=== PATIENT | male | born 1965 | race Caucasian/White ===

== ENCOUNTER 2021-09-22 11:41 | Inpatient (IN) | payer MEDICARE, MEDICAID ==
[~2021-09-22] VITALS: Ht 180.3 cm; Wt 119.0 kg
[2021-09-22 12:16] LABS: HEMATOCRIT 39.2 % (42.0-52.0); MEAN CELL VOLUME 88 fl (80.0-100.0); MEAN CORPUSCULAR HEMOGLOBIN 32 pg (27-31); MEAN CORPUSCULAR HGB CONC 36 g/dl (33.0-37.0); PLATELET COUNT 192 K/mm3 (130-400); RED BLOOD COUNT 4.45 M/mm3 (4.20-5.60); REDCELL DISTRIBUTION WIDTH-CV 13.1 % (11.5-14.5)
[2021-09-22 12:32] LABS: ALANINE AMINOTRANSFERASE 10 U/L (0-55); ALBUMIN 3.8 gm/dL (3.5-5.0); ALKALINE PHOSPHATASE 41 U/L (40-150); ANION GAP 10 mmol/L (7-16); AST,SGOT 12 U/L (5-34); BILIRUBIN,TOTAL 0.8 mg/dL (0.2-1.2); BLOOD UREA NITROGEN 7 mg/dL (8-26); CALCIUM 9.2 mg/dL (8.4-10.2); CARBON DIOXIDE 25 mmol/L (22-29); CREATININE, serum 0.84 mg/dL (0.72-1.25); GLUCOSE 94 mg/dL (70-99); POTASSIUM 4.1 mmol/L (3.5-4.5); SODIUM 122 mmol/L (136-145); TOTAL PROTEIN 6.4 gm/dL (6.2-8.1)
[2021-09-22 12:33] LABS: C-REACTIVE PROTEIN < 0.02 mg/dL (0.00-0.50); CHLORIDE 87 mmol/L (98-107)
[2021-09-22 12:51] LABS: LYMPHOCYTE 24 % (20.0-51.0); NEUTROPHILS 70 % (42.0-75.2); PLATELET ESTIMATE NORMAL (NORMAL)
[2021-09-22] MEDS ORDERED: VOLTAREN GEL 1%1 TU TP (14:19)
--- NOTE | 2021-09-22 16:03 | NUR ---
Confirmed patient is receiving nivolumab (Optivo) and ipilimumab (Yervoy) for renal cell carcinoma every 21 days, last dose was 09/01 for renal cell carcinoma. Patient was due for another round today but did not recieve the dose. Verified with pharmacy that this patient needs to be on chemo precautions, ongoing, due to long half life for both urine at stool. Notified care team and placed sign outside door.
[2021-09-22 16:35] LABS: CALCIUM 8.9 mg/dL (8.4-10.2); CREATININE, serum 0.79 mg/dL (0.72-1.25); MAGNESIUM 1.5 mg/dL (1.6-2.6); POTASSIUM 4.1 mmol/L (3.5-4.5)
[2021-09-22] MEDS ORDERED: COZAAR 50MG50 MG/TAB PO ×2 (16:53→16:54)
[2021-09-22] MEDS ORDERED: INVEGA6 MG PO (16:55)
[2021-09-22] MEDS ORDERED: IMODIUM 2MG CAPS2 MG PO (16:55)
[2021-09-22] MEDS ORDERED: MELATIN 3 MG-11 TAB PO (16:56)
[2021-09-22] MEDS ORDERED: DEPAKOTE ER 50500 MG PO (16:56)
[2021-09-22] MEDS ORDERED: SYNTHROID 0.0.025 MG PO (16:56)
[2021-09-22 16:58] LABS: TSH w REFLEX 0.899 uIU/mL (0.350-4.940)
[2021-09-22] MEDS ORDERED: ZESTRIL40 MG PO (16:58)
[2021-09-22] MEDS ORDERED: PRILOSEC 20MG20 MG PO (16:59)
[2021-09-22] MEDS ORDERED: NORVASC 5MG5 MG/TAB PO (16:59)
[2021-09-22] MEDS ORDERED: LIPITOR20 MG PO (16:59)
[2021-09-22] MEDS ORDERED: BYSTOLIC10 MG PO (16:59)
[2021-09-22] MEDS ORDERED: CORTEF 20MG TAB20 MG PO (17:02)
[2021-09-22 17:14] LABS: COLLECTION METHOD CLEAN CATCH
[2021-09-22 17:21] VITALS: BP 137/73; PULSE 86; TEMP 98.2
[2021-09-22 17:22] LABS: MUCOUS Present (NOT PRESENT); PH 7 (5-8); SQUAMOUS EPITHELIAL None Seen /hpf (0-10); URINE APPEARANCE Clear (CLEAR/HAZY); URINE BACTERIA None Seen /hpf (NONE SEEN); URINE BILIRUBIN Negative (NEGATIVE); URINE BLOOD Negative (NEGATIVE); URINE COLOR Yellow (YELLOW); URINE GLUCOSE Negative (NEGATIVE); URINE KETONE Negative (NEGATIVE); URINE LEUKOCYTE ESTERASE Negative (NEGATIVE); URINE NITRATE Negative (NEGATIVE); URINE PROTEIN(semi-quant) Negative (NEGATIVE); URINE RBC 0-2 /hpf (0-2); URINE UROBILINOGEN Negative (NEGATIVE)
--- NOTE | 2021-09-22 18:06 | NUR ---
Pt slept after arriving to the unit, he is A/O x4. His breathing is even and unlabored on RA. Pt denies SOB. Reports chronic back pain. No need for interventions at this time. IVF infusing into RFA. POC discussed with patient. Call light within reach.
[2021-09-22 20:33] LABS: CREATININE, serum 0.79 mg/dL (0.72-1.25); POTASSIUM 4.1 mmol/L (3.5-4.5)
[2021-09-22 21:23] VITALS: BP 118/72; PULSE 90; TEMP 97.4
[2021-09-22] MEDS ORDERED: DEPAKOTE 250MG250 MG PO (21:58)
[2021-09-22] MEDS ORDERED: DEPAKOTE500 MG PO (21:58)
[2021-09-22 23:53] VITALS: BP 128/64; PULSE 93; TEMP 97.8
[2021-09-23 02:28] LABS: CALCIUM 8.9 mg/dL (8.4-10.2); CREATININE, serum 0.7 mg/dL (0.72-1.25)
[2021-09-23 03:56] VITALS: BP 151/66; PULSE 94; TEMP 98.5
--- NOTE | 2021-09-23 06:20 | NUR ---
ASSESSMENT COMPLETE FOR THIS SHIFT. PT RESTLESS IN HIS RECLINER. PT PULLED OUT HIS IV. I REPLACED PT'S IV SITE. PT JUMPED FROM HIS RECLINER TO HIS BED AND BACK MOST OF THIS NIGHT. PT A BIT DEMANDING, WANTED HIS MEDS NOW, "GO GET ME A WARM BLANKET", "COVER ME WITH 10 BLANKETS AND MAKE SURE THEY'RE OPEN UP WHEN YOU LAY THEM ON ME," "RUB THE VOLTAREN ON BOTH MY LEGS, MAKE SURE YOU GET MY SHINS, MY KNEES AND ANKLES, OH, AND GET MY BACK, TOO", ETC. PT COMPLAINED OF BLE AND BACK PAIN. VOLTAREN GIVEN/USED FOR PAIN. PT DENIED PALPITATIONS, N,V,D OR DIZZINESS. PT REQUESTED TO BE PLACED ON OXYGEN FOR THE NIGHT, THEN ABOUT 30MIN LATER, TOOK IT OFF AND SAID HE DIDN'T WANT IT. (NOTE: PT'S O2 SATS ABOVE 94% THE WHOLE NIGHT, EVEN WITHOUT O2). PT STAYED ON THE CALL LIGHT MOST OF THE NIGHT. ALL PT'S NEEDS ADDRESSED. CALL LIGHT WITHIN REACH.
[2021-09-23 07:01] LABS: BASO % 0.3 % (0.0-2.0); EOS % 0.6 % (0.0-4.0); GRAN % 69.7 % (42.2-75.2); HEMATOCRIT 38.2 % (42.0-52.0); LYMPH # 1.3 K/mm3 (1.2-3.4); LYMPH % 17.8 % (20.0-51.0); MEAN CELL VOLUME 87 fl (80.0-100.0); MEAN CORPUSCULAR HEMOGLOBIN 32 pg (27-31); MEAN CORPUSCULAR HGB CONC 37 g/dl (33.0-37.0); MEAN PLATELET VOLUME 9.1 fl (7.4-10.4); MONO # 0.7 K/mm3 (0.1-0.6); MONO % 10.3 % (1.7-9.3); PLATELET COUNT 190 K/mm3 (130-400); RED BLOOD COUNT 4.41 M/mm3 (4.20-5.60); REDCELL DISTRIBUTION WIDTH-CV 12.7 % (11.5-14.5)
[2021-09-23 07:13] LABS: CALCIUM 8.9 mg/dL (8.4-10.2); CREATININE, serum 0.7 mg/dL (0.72-1.25); POTASSIUM 4.1 mmol/L (3.5-4.5)
--- NOTE | 2021-09-23 07:37 | NUR ---
NOTIFIED DR. DONNELLY OF [facility] OF [facility]. NO FURTHER ORDERS RECEIVED.
[2021-09-23 07:49] VITALS: BP 135/70; PULSE 88; TEMP 98.5
--- NOTE | 2021-09-23 09:55 | NUR ---
PT ALERT AND ORIENTED. ABLE TO CALL FOR NEEDS. ASSESSMENT COMPLETED TO BEST OF ABILITY. PT STATES PAIN IN LEGS, WHEN ASKED RATING PT REPLIES "I DON'T KNOW." PT WHEEZING NOTED IN ALL LOBES BOTH INSPIRATION AND EXPIRATION. PT CALL LIGHT WITHIN REACH. NO NEEDS AT TIME OF ASSESSMENT.
--- NOTE | 2021-09-23 10:42 | NUR ---
rounded on pt, currently sleeping.
[2021-09-23 11:07] VITALS: BP 138/69; PULSE 92; TEMP 98.3
--- NOTE | 2021-09-23 12:58 | NUR ---
FOR EDUCATION INTERVENTION, NO OPTION OF CHEMO PRECAUTIONS.
--- NOTE | 2021-09-23 15:12 | NUR ---
DR. WATKINS CONSULTED FOR PT, STATES WILL BE IN TO SEE HIM TOMORROW.
--- NOTE | 2021-09-23 15:59 | NUR ---
Supervisor [place] unable to complete patient intake assessment/discharge planning as two nursing staff at patient bedside; will re-attempt as possible.
[2021-09-23 16:43] VITALS: BP 137/57; PULSE 84; TEMP 98.3
--- NOTE | 2021-09-23 18:20 | NUR ---
PT CONTINUING ON PLAN OF CARE. FLUIDS INCREASED PER ORDERS, NEPHROLOGY CONSULTED PER ORDERS. NO SIGNIFICANT CHANGES IN PT LEVEL OF CONSCIOUSNESS WITH NEURO CHECKS PERFORMED Q2HR PER ORDERS. PT ABLE TO EXPRESS NEEDS. CALL LIGHT WITHIN REACH, INDEPENDENT AMBULATION IN ROOM.
--- NOTE | 2021-09-23 18:23 | NUR ---
PT HASN'T EATEN DINNER AT TIME OF MEAL ASSESSMENT, MEAL LEFT IN ROOM IN CASE PT WANTS IT LATER.
[2021-09-23 19:33] VITALS: BP 124/84; PULSE 87; TEMP 97.2
[2021-09-23 23:34] VITALS: BP 128/66; PULSE 84; TEMP 98.1
[2021-09-24 04:35] VITALS: BP 133/55; PULSE 76; TEMP 98.1
--- NOTE | 2021-09-24 06:03 | NUR ---
ASSESSMENT COMPLETE FOR THIS SHIFT. PT SITTING OF THE SIDE OF THE BED PLAYING A VIDEO GAME ON HIS PHONE. PT DENIED PAIN, PALPITATIONS, N,V,D, SOB OR DIZZINESS. PT SNATCHED HIS TELLE OFF AND REFUSED TO LET US PUT IT BACK ON. HOSPITAL INFORMED. DOROTHY D/C'ED. AROUND 0330HRS PT DECIDED HE WANTED TO TAKE A SHOWER. PT'S IV SITE COVERED AND PT ALLOWED TO SHOWER. PT PLAYED MUSIC SO LOUD HALF THE NIGHT, IT COULD BE HEARD EVEN WITH HIS DOOR CLOSED. PT'S NEURO'S REMAIN STABLE. PT EXPRESSED NO OTHER NEEDS AT THIS TIME. CALL LIGHT WITHIN REACH.
--- NOTE | 2021-09-24 06:45 | NUR ---
Report received, assumed care for day shift.
[2021-09-24 06:50] LABS: HEMATOCRIT 37.8 % (42.0-52.0); HEMOGLOBIN 13.5 g/dl (13.5-18.0); MEAN CELL VOLUME 89 fl (80.0-100.0); MEAN CORPUSCULAR HEMOGLOBIN 32 pg (27-31); MEAN CORPUSCULAR HGB CONC 36 g/dl (33.0-37.0); MEAN PLATELET VOLUME 9.7 fl (7.4-10.4); PLATELET COUNT 173 K/mm3 (130-400); RED BLOOD COUNT 4.25 M/mm3 (4.20-5.60); REDCELL DISTRIBUTION WIDTH-CV 13.1 % (11.5-14.5)
[2021-09-24 07:09] LABS: BAND 1 % (0-10); LYMPHOCYTE 24 % (20.0-51.0); METAMYELOCYTE 1 % (0-0); NEUTROPHILS 67 % (42.0-75.2); PLATELET ESTIMATE NORMAL (NORMAL)
[2021-09-24 07:10] LABS: CALCIUM 8.8 mg/dL (8.4-10.2); CREATININE, serum 0.71 mg/dL (0.72-1.25)
[2021-09-24 08:36] VITALS: BP 139/77; PULSE 92; TEMP 98.2
[2021-09-24 12:39] VITALS: BP 126/68; PULSE 88; TEMP 98
--- NOTE | 2021-09-24 13:05 | NUR ---
Radiology notified of new order for chest xray
[2021-09-24 13:37] LABS: CALCIUM 9.1 mg/dL (8.4-10.2); CREATININE, serum 0.8 mg/dL (0.72-1.25); POTASSIUM 4.1 mmol/L (3.5-4.5)
--- NOTE | 2021-09-24 13:41 | NUR ---
Dr Hanks notified of critical labs.
--- NOTE | 2021-09-24 14:15 | NUR ---
SW met with patient to complete intake. Patient provides that he lives in [place] with his mother Emilee [phone]. Patient does not utilize DME and is independent with ADL's, PCP is Dr. Cadrozo, pharmacy is in [place], and does not have anyone appointed as DPOA of . Patient states that he plans to return to his home with his mother upon DC and has no concerns with doing so. SW will continue to follow. DC plan: Home
--- NOTE | 2021-09-24 15:24 | NUR ---
Patient has been up in halls ambulating/in wheelchair with periods of agitation. States he wants to go home and will leave regardless if we allow. Received a phone call from family earlier in the day stating he will leave AMA and they can not take care of him anymore. Currently resting in bed with eyes closed. NO s/s of pain or discomfort. Will monitor.
[2021-09-24 15:44] VITALS: BP 130/59; PULSE 85; TEMP 98.1
--- NOTE | 2021-09-24 18:01 | NUR ---
Patient in better spirits this afternoon asking "will I get to go home tomorrow?" States he is worried about not having a ride and requesting social work help assist with that. Will pass on in report. Denies current questions/concerns. Call light in reach. Will monitor.
[2021-09-24 20:42] VITALS: BP 123/72; PULSE 87; TEMP 97.8
[2021-09-24 23:29] VITALS: BP 148/76; PULSE 81; TEMP 98.1
[2021-09-25 04:14] VITALS: BP 122/77; PULSE 73; TEMP 97.7
[2021-09-25 06:09] LABS: BASO % 0.2 % (0.0-2.0); EOS % 0.2 % (0.0-4.0); GRAN # 10.2 K/mm3 (1.4-6.5); GRAN % 75.8 % (42.2-75.2); HEMATOCRIT 37.2 % (42.0-52.0); HEMOGLOBIN 13.3 g/dl (13.5-18.0); LYMPH # 1.9 K/mm3 (1.2-3.4); LYMPH % 13.7 % (20.0-51.0); MEAN CELL VOLUME 89 fl (80.0-100.0); MEAN CORPUSCULAR HEMOGLOBIN 32 pg (27-31); MEAN CORPUSCULAR HGB CONC 36 g/dl (33.0-37.0); MEAN PLATELET VOLUME 9.6 fl (7.4-10.4); MONO # 1.2 K/mm3 (0.1-0.6); MONO % 9.1 % (1.7-9.3); PLATELET COUNT 200 K/mm3 (130-400); RED BLOOD COUNT 4.19 M/mm3 (4.20-5.60); REDCELL DISTRIBUTION WIDTH-CV 13.1 % (11.5-14.5)
[2021-09-25 06:20] LABS: CALCIUM 8.9 mg/dL (8.4-10.2); CREATININE, serum 0.74 mg/dL (0.72-1.25); POTASSIUM 4.1 mmol/L (3.5-4.5)
--- NOTE | 2021-09-25 06:30 | NUR ---
ASSESSMENT COMPLETE FOR THIS SHIFT. PT RESTING IN BED WITH ROOM IN [place]. PT COMPLAINED OF NOT GETTING ANYTHING TO DRINK (DAYSHIFT CALLED DOWN TO THE KITCHEN TO GET MORE GATORADE, IT HAD NOT COME UP YET) AND NOBODY RUBBED HIS VOLTAREN ON HIS LEGS. I EXPLAINED TO PT, I JUST GOT TO WORK, BUT I WOULD MAKE SURE HE GOT SOMETHING TO DRINK AND SHOWED HIM THAT THE VOLTAREN WAS THERE IN HIS ROOM. PT DENIED PALPITATIONS, SOB, N,V,D OR DIZZINESS. PT TALKED ABOUT BEING EXCITED TO BE GOING HOME "TOMORROW." PT ALSO WANTED TO WAIT TO TAKE HIS 0700HRS MEDS. PT EXPRESSED NO OTHER NEEDS AT THIS TIME. CALL LIGHT WITHIN REACH.
[2021-09-25 07:48] VITALS: BP 145/80; PULSE 76; TEMP 98.1
--- NOTE | 2021-09-25 08:48 | NUR ---
PT SITTING UP IN RECLINER. MORNING MEDICATIONS GIVEN. SHIFT ASSESSMENT COMPLETED. NS INFUSING AT 150ML/HR. PT REPORTS MILD ACHES IN BLE. DENIES ANY NEEDS AT THIS TIME. PT IS EAGER TO D/C. WILL CONTINUE TO MONITOR.
[2021-09-25 11:25] VITALS: BP 129/59; PULSE 70; TEMP 97.9
--- NOTE | 2021-09-25 15:26 | NUR ---
LEXI received a message from a family member at phone number [phone]. SW attempted to return the call several times throughout the day, however the voicemail box was full.
[2021-09-25 16:16] VITALS: BP 133/58; PULSE 83; TEMP 98.3
[2021-09-25 19:58] VITALS: BP 139/54; PULSE 76; TEMP 18
--- NOTE | 2021-09-25 22:41 | NUR ---
PATIENT ALERT AND ORIENTED. MEDS ADMINISTERED PER EMAR. FLUIDS ON HOLD PER ORDER. PATIENT REQUESTED IV BE TAKEN OUT AT THIS TIME, EDUCATED PATIENT THAT IV NEEDED TO STAY IN WHILE HE WAS HERE. REQUESTED MORE GATORADE. C/O MODERATE PAIN, VOLTAREN GEL APPLIED TO ANKLES. NC WNL. PATIENT CURRENTLY IN SHOWER.
[2021-09-25 23:05] VITALS: BP 122/67; PULSE 72; TEMP 98.1
[2021-09-26 04:07] VITALS: BP 137/63; PULSE 67; TEMP 97.7
[2021-09-26 06:01] LABS: HEMATOCRIT 38.1 % (42.0-52.0); HEMOGLOBIN 13.3 g/dl (13.5-18.0); MEAN CELL VOLUME 90 fl (80.0-100.0); MEAN CORPUSCULAR HEMOGLOBIN 31 pg (27-31); MEAN CORPUSCULAR HGB CONC 35 g/dl (33.0-37.0); MEAN PLATELET VOLUME 9.4 fl (7.4-10.4); PLATELET COUNT 192 K/mm3 (130-400); RED BLOOD COUNT 4.23 M/mm3 (4.20-5.60); REDCELL DISTRIBUTION WIDTH-CV 13.1 % (11.5-14.5)
[2021-09-26 06:22] LABS: CALCIUM 9.1 mg/dL (8.4-10.2); CREATININE, serum 0.73 mg/dL (0.72-1.25)
[2021-09-26 07:10] LABS: BAND 1 % (0-10); EOSINOPHIL 1 % (0-4); LYMPHOCYTE 22 % (20.0-51.0); NEUTROPHILS 66 % (42.0-75.2)
[2021-09-26 07:11] LABS: PLATELET ESTIMATE NORMAL (NORMAL)
[2021-09-26 07:45] VITALS: BP 149/84; PULSE 72; TEMP 98.2
--- NOTE | 2021-09-26 09:02 | NUR ---
PT IN BED. MORNING MEDICATIONS GIVEN. SHIFT ASSESSMENT COMPLETED. PT REPORTS NOT FEELING WELL THIS MORNING, STATES HE CANNOT REMEMBER THE LAST TIME HE HAD A BM AND FEELS THAT IS CAUSING THE DISCOMFORT. PT IN AN AGGRESSIVE MOOD AND DOES NOT LIKE ANY ADVICE THIS RN HAS TO OFFER. WILL CONTINUE TO MONITOR.
--- NOTE | 2021-09-26 10:01 | NUR ---
SPOKE WITH PT MOTHER, DONA. PLAN FOR HER TO BRING IN PT'S MEDICATIONS LATER THIS EVENING.
[2021-09-26 10:58] VITALS: BP 152/74; PULSE 67; TEMP 97.8
--- NOTE | 2021-09-26 14:05 | NUR ---
IV D/C. WILL PACK BELONGINGS FOR D/C.
--- NOTE | 2021-09-26 15:19 | NUR ---
[employer] contacted patient's mother, Emilee and left a message. SW was notified that patient is ready for discharge. SW met with patient to present and review IM. Patient verbalized understanding and provided signature. SW placed form in chart then provided copy to patient who states he is ready to get home. Patient needs transportation home. LEXI contacted [employer] transportation and scheduled a ride home (confirmation #[id number]). SW also spoke with patient about where he can secure a shower chair. SW explained to patient that this was not an item covered by insurance and he verbalized understanding. LEXI received a call from patient's mother, Emilee. LEXI advised Emilee that patient will be discharged today and that transportation home was scheduled with [employer] transportation. Emilee expressed concern about this plan as she is at work and no one would be there when patient got home. LEXI asked Emilee if patient requires someone at home with him at all times and she stated no. LEXI asked Emilee if patient can get into the home and she stated yes. Emilee thanked LEXI for setting up transportation and will call back with any other questions or concerns. Discharge Plan: Home
--- NOTE | 2021-09-26 17:32 | NUR ---
DISCHARGE INSTRUCTIONS GIVEN. PT ESCORTED DOWN TO LYFT VEHICLE. WILL D/C FROM SYSTEM.
== END 2021-09-26 17:33 | disposition home or self-care (01) | DRG 644 ==
LOC: COL.ER 11:41 → MEDICAL 12:48
PROVIDERS: Family Medicine; Physician Assistant; ADMIT Student in an Organized Health Care Education/Training Program
DX: E22.2 Syndrome of inappropriate secretion of antidiuretic hormone (principal); C64.9 Malignant neoplasm of unspecified kidney, except renal pelvis; C78.02 Secondary malignant neoplasm of left lung; C78.01 Secondary malignant neoplasm of right lung; I10 Essential (primary) hypertension; E78.5 Hyperlipidemia, unspecified; F17.210 Nicotine dependence, cigarettes, uncomplicated; K21.9 Gastro-esophageal reflux disease without esophagitis; E03.9 Hypothyroidism, unspecified; F39 Unspecified mood [affective] disorder; T42.6X5A Adverse effect of other antiepileptic and sedative-hypnotic drugs, initial encounter
CPT/HCPCS: 99222-AI; 99232-AI; 99233-AI; 99239; J1650; J7030